=== PATIENT | male | born 1980 | race Caucasian/White ===

== ENCOUNTER 2017-03-08 21:56 | Emergency (ER) | payer OTHER ==
--- NOTE | 2017-03-08 23:30 | DIAGNOSTIC IMAGING REPORT ---
PROCEDURE: XR CHEST 2 VIEW INDICATION: FEVER TECHNIQUE: PA and lateral views. COMPARISON: None. FINDINGS: Allowing for overlying wires and electrodes, lungs are clear. Heart and mediastinum are normal. Thorax is normal. IMPRESSION: 1. Negative chest.
--- NOTE | 2017-03-09 01:14 | ED CLINICAL REPORT ---
Clinical Report - Physicians/Mid Levels Formerly [facility] [address] [place] [address] 03/08/2017 21:58 Patient: ANTWAN PATE Time Seen: 22:35. Arrived- By private vehicle. Historian- patient. HISTORY OF PRESENT ILLNESS Chief Complaint: FEVER. This started about 2 days ago and is still present. Fever has been intermittent. The patient has had fatigue and mild dyspnea. He complains of moderate, pressure-like, exertional left-sided chest pain (since 2 days ago), currently mild. Denies pleuritic chest pain. He has had a mild cough productive of scant amounts of green sputum. REVIEW OF SYSTEMS The patient has had fatigue, mild palpitations and nausea. He has had a subjective fever (for 2 days). No calf pain, pedal edema, abdominal pain, black stools or bloody stools. No constipation, vomiting or urinary problems. He has had mild loose stools (yesterday). This has occurred several times. No bloody diarrhea. All systems otherwise negative, except as recorded above. PAST HISTORY Problems: Hypertension. Additional Surgeries: no known surgeries. Medications: None. Allergies: No Known Drug Allergy. SOCIAL HISTORY Never smoker. FAMILY HISTORY Denies family medical history. ADDITIONAL NOTES The nursing notes have been reviewed. PHYSICAL EXAM Vital Signs: 03/08/2017 22:17 BP: 152/90. HR: 102. RR: 18. O2 saturation: 97%. Temp: 101.1 F. Pain level now: 6/10. Have been reviewed. Appearance: Alert. Eyes: Pupils equal, round and reactive to light. ENT: Pharynx normal. Neck: Normal inspection. Neck supple. CVS: Normal heart rate and rhythm. Heart sounds normal. Respiratory: (rattle over large airways which clears with cough). Abdomen: Soft and nontender. Bowel sounds normal. No organomegaly. No mass. Back: Normal inspection. No tenderness. Skin: Skin warm and dry. Normal skin color. No rash. Normal skin turgor. Extremities: Extremities exhibit normal ROM. Extremities nontender. LABS, X-RAYS, AND EKG EKG: Normal EKG. Rate: 75. Prior EKG unavailable. The study has been independently viewed by me. Chest X-ray: (IMPRESSION: 1. Negative chest). The X-rays were interpreted by the radiologist and contemporaneously by me. Laboratory Tests: ESR: (MONIQUE: 03/08/2017 22:20) ( [facility] [place]/09[place] 00:25) Final results Test Result Flag Units (Reference) SED RATE WESTERGREN 11 mm/hr (0-15) CBC w Diff: (MONIQUE: 03/08/2017 22:20) ( [facility] 03/08/2017 22:34) Final results Test Result Flag Units (Reference) WHITE BLOOD COUNT 8.8 K/uL (4.5-11.5) RED BLOOD COUNT 5.15 M/uL (4.50-5.90) HEMOGLOBIN 14.9 gm/dL (13.5-17.5) HEMATOCRIT 44.0 % (41.0-53.0) MEAN CELL VOLUME 86 fL (80-100) MEAN CORPUSCULAR HGB 29 pg (26-34) MEAN CORPUSCULAR HGB CONC 34 g/dL (31-37) RED CELL DISTRIBUTION WIDTH 13.1 % (11.6-14.8) PLATELET COUNT 194 K/uL (150-400) NEUTROPHIL % 73.5 % (50-75) LYMPH % 10.9 L % (25-40) MONO % 15.3 H % (3-14) EOSINOPHIL % 0 % (0-4) BASOPHIL % 0.3 % (0-2) [id number]: (MONIQUE: 03/08/2017 22:20) ( MsgRcvd 03/09/2017 00:12) Final results Test Result Flag Units (Reference) C-REACTIVE PROTEIN 1.9 H mg/dL (0.0-0.9) [id number]: (MONIQUE: 03/08/2017 22:20) ( [facility] 03/08/2017 23:18) Final results Test Result Flag Units (Reference) PROCALCITONIN <0.5 ng/mL (0-0.5) PCT Concentration: Interpretation : Risk/option for action PCT <=0.5 ng/mL : Systemic : Low risk forinfection(sepsis): progression to severeis not likely. : systemic infection.Local bacterial : CAUTION-PCT levelsinfection is : below 0.5 ng/mL do notpossible. : exclude an infection,because localizedinfections (withoutsystemic signs) may beassociated with suchlow levels. If PCT ismeasured very earlyafter a bacterialchallenge (usually <6hours), these valuesmay still be low. Inthis case PCT shouldbe re-assessed 6-24hours later. PCT >0.5 and : Systemic infection: Moderate risk for<= 2 ng/mL : (sepsis) is : progression to severepossible, but : systemic infection.other conditions : The patient should beare known to : closely monitoredelevate PCT. : both clinically andby re-assessing PCTwithin 6-24 hours. PCT > 2 ng/mL : Systemic infection: High risk for(sepsis) is likely: progression to severeunless other : systemic infection.causes are known. : PCT >= 10 ng/mL : Important systemic: High likelihood ofinflammatory : severe sepsis orresponse, almost : septic shock.exclusively due to:severe bacterial :sepsis or septic :shock. : CMP: (MONIQUE: 03/08/2017 22:20) ( MsgRcvd 03/08/2017 22:45) Final results Test Result Flag Units (Reference) GLUCOSE 105 mg/dL (70-110) BUN 15 mg/dL (7-18) CREATININE 1.1 mg/dL (0.6-1.3) Estimated GFR >60 mL/min Estimated GFR- >60 mL/min Note: Persistent reduction over 3 months in eGFR<60 mL/min/1.73 m2 defines CKD. Patients with eGFR values>=60 mL/min/1.73 m2 may also have CKD if evidence ofpersistent proteinuria. Additional information may be foundat www.kidney.org. SODIUM 138 mmol/L (136-145) POTASSIUM 3.9 mmol/L (3.5-5.1) CHLORIDE 102 mmol/L (98-107) CARBON DIOXIDE 26 mmol/L (21-32) CALCIUM 9.4 mg/dL (8.5-10.1) TOTAL PROTEIN 7.6 g/dL (6.4-8.2) ALBUMIN 4.2 g/dL (3.3-5.0) BILIRUBIN, TOTAL 0.9 mg/dL (0.0-1.0) ALKALINE PHOSPHATASE 81 U/L (46-116) AST (SGOT) 32 U/L (15-37) ALT (SGPT) 43 U/L (12-78) . PROGRESS AND PROCEDURES Course of Care: Patient is stable. Patient/family counseled. Old medical records ordered. Old records unavailable. Disposition: Discharged. Condition: stable. CLINICAL IMPRESSION Fever Acute bronchitis. Pleurisy. INSTRUCTIONS Drink plenty of fluids. Warnings: Further evaluation is necessary. GENERAL WARNINGS: Return or contact your physician immediately if your condition worsens or changes unexpectedly, if not improving as expected, or if other problems arise. Prescription Medications: Zithromax 250 mg tablets: take 2 orally today, followed by 1 daily for the next 4 days. No refills. Substitution is permissible. OTC Medications: Acetaminophen (available over the counter): take according to label instructions. Motrin (available over the counter): take according to label instructions. Follow-up: Follow up with your doctor Saturday in three days. Call for an appointment. Understanding of the discharge instructions verbalized by patient and family. (Electronically signed by Domingo Varghese MD 03/11/2017 11:03)
--- NOTE | 2017-03-09 01:14 | ED ORDER SUMMARY ---
..... Patient: ANTWAN PATE OrderSheet [facility] VisitID: [id number] [address] [place] [address] 36y, M Registration Date/Time: 03/08/2017 ORDER SHEET Weight: 99.7 kg Allergies: No Known Drug Allergy GENERAL ORDERS: CBC w Diff Urgent (22:22 03/08/2017 TBowen R.N. per protocol) (22:23 TBowen R.N.) CMP Urgent (22:22 03/08/2017 TBowen R.N. per protocol) (22:23 TBowen R.N.) EKG - ER Stat (22:22 03/08/2017 TBowen R.N. per protocol) (Ack 22:23 SRedmond) (22:28 SRedmond) Chest 2V Urgent (22:47 03/08/2017 Yanira CORONADO) (Ack 22:56 SRedmond) (23:05 SRedmond) PCT (Procalcitonin) Urgent (22:48 03/08/2017 Yanira CORONADO) (Ack 22:56 SRedmond) (23:21 SRedmond) ESR Urgent (00:01 03/09/2017 Yanira CORONADO) (Ack 0:03 SRedmond) (0:17 TBowen R.N.) CRP Urgent (00:01 03/09/2017 Yanira CORONADO) (Ack 0:03 SRedmond) (0:17 TBowen R.N.) MEDICATION ORDERS: IV FLUIDS: ORDER SHEET NOTES: [Electronically signed by Mar Will R.N. (03/09/2017)] [Electronically signed by Domingo Varghese MD (11:03 03/11/2017)] [Electronically locked/signed by Mar Will R.N. (03/09/2017)]
--- NOTE | 2017-03-09 01:14 | ED ORDER SUMMARY ---
..... Patient: ANTWAN PATE OrderSheet [facility] VisitID: [id number] [address] [place] [address] 36y, M Registration Date/Time: 03/08/2017 ORDER SHEET Weight: 99.7 kg Allergies: No Known Drug Allergy GENERAL ORDERS: CBC w Diff Urgent (22:22 03/08/2017 TBowen R.N. per protocol) (22:23 TBowen R.N.) CMP Urgent (22:22 03/08/2017 TBowen R.N. per protocol) (22:23 TBowen R.N.) EKG - ER Stat (22:22 03/08/2017 TBowen R.N. per protocol) (Ack 22:23 SRedmond) (22:28 SRedmond) Chest 2V Urgent (22:47 03/08/2017 Yanira CORONADO) (Ack 22:56 SRedmond) (23:05 SRedmond) PCT (Procalcitonin) Urgent (22:48 03/08/2017 Yanira CORONADO) (Ack 22:56 SRedmond) (23:21 SRedmond) ESR Urgent (00:01 03/09/2017 Yanira CORONADO) (Ack 0:03 SRedmond) (0:17 TBowen R.N.) CRP Urgent (00:01 03/09/2017 Yanira CORONADO) (Ack 0:03 SRedmond) (0:17 TBowen R.N.) MEDICATION ORDERS: IV FLUIDS: ORDER SHEET NOTES: [Electronically signed by Mar Will R.N. (03/09/2017)] [Electronically signed by Domingo Varghese MD (11:03 03/11/2017)] [Electronically locked/signed by Mar Will R.N. (03/09/2017)]
--- NOTE | 2017-03-09 01:14 | ED CLINICAL REPORT ---
Clinical Report - Physicians/Mid Levels [facility] [address] [place] [address] 03/08/2017 21:58 Patient: ANTWAN PATE Time Seen: 22:35. Arrived- By private vehicle. Historian- patient. HISTORY OF PRESENT ILLNESS Chief Complaint: FEVER. This started about 2 days ago and is still present. Fever has been intermittent. The patient has had fatigue and mild dyspnea. He complains of moderate, pressure-like, exertional left-sided chest pain (since 2 days ago), currently mild. Denies pleuritic chest pain. He has had a mild cough productive of scant amounts of green sputum. REVIEW OF SYSTEMS The patient has had fatigue, mild palpitations and nausea. He has had a subjective fever (for 2 days). No calf pain, pedal edema, abdominal pain, black stools or bloody stools. No constipation, vomiting or urinary problems. He has had mild loose stools (yesterday). This has occurred several times. No bloody diarrhea. All systems otherwise negative, except as recorded above. PAST HISTORY Problems: Hypertension. Additional Surgeries: no known surgeries. Medications: None. Allergies: No Known Drug Allergy. SOCIAL HISTORY Never smoker. FAMILY HISTORY Denies family medical history. ADDITIONAL NOTES The nursing notes have been reviewed. PHYSICAL EXAM Vital Signs: 03/08/2017 22:17 BP: 152/90. HR: 102. RR: 18. O2 saturation: 97%. Temp: 101.1 F. Pain level now: 6/10. Have been reviewed. Appearance: Alert. Eyes: Pupils equal, round and reactive to light. ENT: Pharynx normal. Neck: Normal inspection. Neck supple. CVS: Normal heart rate and rhythm. Heart sounds normal. Respiratory: (rattle over large airways which clears with cough). Abdomen: Soft and nontender. Bowel sounds normal. No organomegaly. No mass. Back: Normal inspection. No tenderness. Skin: Skin warm and dry. Normal skin color. No rash. Normal skin turgor. Extremities: Extremities exhibit normal ROM. Extremities nontender. LABS, X-RAYS, AND EKG EKG: Normal EKG. Rate: 75. Prior EKG unavailable. The study has been independently viewed by me. Chest X-ray: (IMPRESSION: 1. Negative chest). The X-rays were interpreted by the radiologist and contemporaneously by me. Laboratory Tests: ESR: (MONIQUE: 03/08/2017 22:20) ( [facility] [place]:25) Final results Test Result Flag Units (Reference) SED RATE WESTERGREN 11 mm/hr (0-15) CBC w Diff: (MONIQUE: 03/08/2017 22:20) ( [facility] [place]/08[place] 22:34) Final results Test Result Flag Units (Reference) WHITE BLOOD COUNT 8.8 K/uL (4.5-11.5) RED BLOOD COUNT 5.15 M/uL (4.50-5.90) HEMOGLOBIN 14.9 gm/dL (13.5-17.5) HEMATOCRIT 44.0 % (41.0-53.0) MEAN CELL VOLUME 86 fL (80-100) MEAN CORPUSCULAR HGB 29 pg (26-34) MEAN CORPUSCULAR HGB CONC 34 g/dL (31-37) RED CELL DISTRIBUTION WIDTH 13.1 % (11.6-14.8) PLATELET COUNT 194 K/uL (150-400) NEUTROPHIL % 73.5 % (50-75) LYMPH % 10.9 L % (25-40) MONO % 15.3 H % (3-14) EOSINOPHIL % 0 % (0-4) BASOPHIL % 0.3 % (0-2) [id number]: (MONIQUE: 03/08/2017 22:20) ( MsgRcvd 03/09/2017 00:12) Final results Test Result Flag Units (Reference) C-REACTIVE PROTEIN 1.9 H mg/dL (0.0-0.9) [id number]: (MONIQUE: 03/08/2017 22:20) ( [facility] [place]/08[place] 23:18) Final results Test Result Flag Units (Reference) PROCALCITONIN <0.5 ng/mL (0-0.5) PCT Concentration: Interpretation : Risk/option for action PCT <=0.5 ng/mL : Systemic : Low risk forinfection(sepsis): progression to severeis not likely. : systemic infection.Local bacterial : CAUTION-PCT levelsinfection is : below 0.5 ng/mL do notpossible. : exclude an infection,because localizedinfections (withoutsystemic signs) may beassociated with suchlow levels. If PCT ismeasured very earlyafter a bacterialchallenge (usually <6hours), these valuesmay still be low. Inthis case PCT shouldbe re-assessed 6-24hours later. PCT >0.5 and : Systemic infection: Moderate risk for<= 2 ng/mL : (sepsis) is : progression to severepossible, but : systemic infection.other conditions : The patient should beare known to : closely monitoredelevate PCT. : both clinically andby re-assessing PCTwithin 6-24 hours. PCT > 2 ng/mL : Systemic infection: High risk for(sepsis) is likely: progression to severeunless other : systemic infection.causes are known. : PCT >= 10 ng/mL : Important systemic: High likelihood ofinflammatory : severe sepsis orresponse, almost : septic shock.exclusively due to:severe bacterial :sepsis or septic :shock. : CMP: (MONIQUE: 03/08/2017 22:20) ( MsgRcvd 03/08/2017 22:45) Final results Test Result Flag Units (Reference) GLUCOSE 105 mg/dL (70-110) BUN 15 mg/dL (7-18) CREATININE 1.1 mg/dL (0.6-1.3) Estimated GFR >60 mL/min Estimated GFR- >60 mL/min Note: Persistent reduction over 3 months in eGFR<60 mL/min/1.73 m2 defines CKD. Patients with eGFR values>=60 mL/min/1.73 m2 may also have CKD if evidence ofpersistent proteinuria. Additional information may be foundat www.kidney.org. SODIUM 138 mmol/L (136-145) POTASSIUM 3.9 mmol/L (3.5-5.1) CHLORIDE 102 mmol/L (98-107) CARBON DIOXIDE 26 mmol/L (21-32) CALCIUM 9.4 mg/dL (8.5-10.1) TOTAL PROTEIN 7.6 g/dL (6.4-8.2) ALBUMIN 4.2 g/dL (3.3-5.0) BILIRUBIN, TOTAL 0.9 mg/dL (0.0-1.0) ALKALINE PHOSPHATASE 81 U/L (46-116) AST (SGOT) 32 U/L (15-37) ALT (SGPT) 43 U/L (12-78) . PROGRESS AND PROCEDURES Course of Care: Patient is stable. Patient/family counseled. Old medical records ordered. Old records unavailable. Disposition: Discharged. Condition: stable. CLINICAL IMPRESSION Fever Acute bronchitis. Pleurisy. INSTRUCTIONS Drink plenty of fluids. Warnings: Further evaluation is necessary. GENERAL WARNINGS: Return or contact your physician immediately if your condition worsens or changes unexpectedly, if not improving as expected, or if other problems arise. Prescription Medications: Zithromax 250 mg tablets: take 2 orally today, followed by 1 daily for the next 4 days. No refills. Substitution is permissible. OTC Medications: Acetaminophen (available over the counter): take according to label instructions. Motrin (available over the counter): take according to label instructions. Follow-up: Follow up with your doctor Saturday in three days. Call for an appointment. Understanding of the discharge instructions verbalized by patient and family. (Electronically signed by Domingo Varghese MD 03/11/2017 11:03)
--- NOTE | 2017-03-09 01:14 | ED NURSING NOTES ---
Clinical Report - Nurses [facility] [address] [place] [address] 03/08/2017 21:58 Patient: ANTWAN PATE TRIAGE Triage time 22:17. Chief Complaint: FEVER and "NOT FEELING WELL". --22:20 Apolinar R.N. 22:17 03/08/17. BP: 152/90. HR: 102. RR: 18. O2 saturation: 97%. Temp: 101.1 F. Pain level now: 05/11. --22:20 Apolinar R.N. Weight: 99.7 kg. Height/Length: 74 inches. BMI: 28.2. --22:20 Apolinar R.N. Medications None. --22:18 Apolinar R.N. Allergies No Known Drug Allergy. --22:18 Apolinar R.N. History Arrived by private vehicle. Historian: patient. Accompanied by family. Onset. (2 days). ( pt also complains of cough, chest pain and tingling in his hands and fingers). He has had a sore throat and a cough and headache. PAST MEDICAL HX: Immunizations: up-to-date. SOCIAL HX: Never smoker. No infectious disease exposure. --22:20 Apolinar R.N. SELF HARM ASSESSMENT: A self harm assessment was performed. The patient answered "no" to the question "Have you recently felt down, depressed, or hopeless?", "Have you noticed less interest or pleasure in doing things?", "Do you have thoughts of harming or killing yourself?", "Are you here because you tried to hurt yourself?", "Have you ever tried to hurt yourself before today?", "Have you recently had thoughts about harming or killing others?" and "Do you have any dangerous items in your possession?". FALL RISK ASSESSMENT: Fall risk assessment completed. No fall risk identified. NUTRITIONAL RISK ASSESSMENT: The nutritional risk assessment revealed no deficiencies. FUNCTIONAL ASSESSMENT: Functional assessment: no impairments noted. LEARNING NEEDS ASSESSMENT: The learning needs assessment revealed no barriers. SKIN INTEGRITY ASSESSMENT: Skin integrity risk assessment completed. No skin integrity risk identified. --22:20 Oswaldo Jiang PROBLEMS: Hypertension. --22:19 Henrique Jiang. ADDITIONAL SURGERIES: no known surgeries. Interventions ID band on patient. To treatment room. --22:20 Oswaldo Jiang PHYSICAL ASSESSMENT Ambulatory to room. GENERAL / NEURO / PSYCH: Alert. Oriented X 4. Appears in no acute distress. HEENT: Pupils equal, round and reactive to light. Mucous membranes are pink. RESPIRATORY: Respirations not labored. Nonproductive cough. Chest wall tenderness. CVS: Normal sinus rhythm noted. Capillary refill less than 2 seconds. Pulses within normal limits. GI / : ( nausea). Abdomen soft and nontender and normal bowel sounds. SKIN: Skin intact. Skin is warm and dry. Normal skin turgor. --22:21 Oswaldo Jiang NURSING PROGRESS NOTES acid wash operator, pulse oximeter and NIBP monitor placed on patient. Patient gowned. Patient identifiers checked. Call light placed in reach. Side rails up. Bed placed in lowest position. Brakes of bed on. --: Oswaldo Jiang 22:03/08/2017 Site #1 started via IV in the right antecubital space with an 20g angiocath, with aseptic technique and good blood return; one attempt. Blood drawn: rainbow set. Labeled in the presence of the patient and sent to the lab. Saline lock flushed with saline. --:22 Oswaldo Jiang EKG time: (2228 PM). EKG was ordered, performed by a tech and shown to the ED physician. --22:31 Aranza Stewart. DISPOSITION / DISCHARGE 01:03/09/2017 Site #1 removed upon discharge. Catheter intact. Bandaid applied. --: Oswaldo Jiang Departure time: :22. Condition at departure: improved. No learning barriers present. Discharge instructions provided and reviewed with the patient. Reviewed medication(s) side effects, precautions, dosing and course information. Prescription(s) given to the patient. Patient verbalized understanding. Written instructions provided in Tristanian. No warning instructions, treatment instructions, referrals given to the patient, diet instructions or activity restrictions. No follow up contact number given or stop smoking instructions. No work note given. The patient was discharged by the physician. He was discharged home and accompanied by spouse. He left the Emergency Department ambulatory and via private vehicle. Spouse driving. FALL RISK ASSESSMENT: Fall risk assessment completed. No fall risk identified. --01:22 Oswaldo Jiang 01:21 03/09/17. BP: 134/86. HR: 71. RR: 16. O2 saturation: 98%. Temp: 98.5 F. Pain level now: 01/11. --01:22 Oswaldo Jiang Locked/Released at 03/09/2017 1:22 by Oswaldo Jiang
--- NOTE | 2017-03-09 01:14 | ED NURSING NOTES ---
Clinical Report - Nurses [facility] [address] [place] [address] 03/08/2017 21:58 Patient: ANTWAN PATE TRIAGE Triage time 22:17. Chief Complaint: FEVER and "NOT FEELING WELL". --22:20 Apolinar R.N. 22:17 03/08/17. BP: 152/90. HR: 102. RR: 18. O2 saturation: 97%. Temp: 101.1 F. Pain level now: 05/11. --22:20 Apolinar R.N. Weight: 99.7 kg. Height/Length: 74 inches. BMI: 28.2. --22:20 Apolinar R.N. Medications None. --22:18 Apolinar R.N. Allergies No Known Drug Allergy. --22:18 Apolinar R.N. History Arrived by private vehicle. Historian: patient. Accompanied by family. Onset. (2 days). ( pt also complains of cough, chest pain and tingling in his hands and fingers). He has had a sore throat and a cough and headache. PAST MEDICAL HX: Immunizations: up-to-date. SOCIAL HX: Never smoker. No infectious disease exposure. --22:20 Apolinar R.N. SELF HARM ASSESSMENT: A self harm assessment was performed. The patient answered "no" to the question "Have you recently felt down, depressed, or hopeless?", "Have you noticed less interest or pleasure in doing things?", "Do you have thoughts of harming or killing yourself?", "Are you here because you tried to hurt yourself?", "Have you ever tried to hurt yourself before today?", "Have you recently had thoughts about harming or killing others?" and "Do you have any dangerous items in your possession?". FALL RISK ASSESSMENT: Fall risk assessment completed. No fall risk identified. NUTRITIONAL RISK ASSESSMENT: The nutritional risk assessment revealed no deficiencies. FUNCTIONAL ASSESSMENT: Functional assessment: no impairments noted. LEARNING NEEDS ASSESSMENT: The learning needs assessment revealed no barriers. SKIN INTEGRITY ASSESSMENT: Skin integrity risk assessment completed. No skin integrity risk identified. --22:20 Oswaldo Jiang PROBLEMS: Hypertension. --22:19 Henrique Jiang. ADDITIONAL SURGERIES: no known surgeries. Interventions ID band on patient. To treatment room. --22:20 Oswaldo Jiang PHYSICAL ASSESSMENT Ambulatory to room. GENERAL / NEURO / PSYCH: Alert. Oriented X 4. Appears in no acute distress. HEENT: Pupils equal, round and reactive to light. Mucous membranes are pink. RESPIRATORY: Respirations not labored. Nonproductive cough. Chest wall tenderness. CVS: Normal sinus rhythm noted. Capillary refill less than 2 seconds. Pulses within normal limits. GI / : ( nausea). Abdomen soft and nontender and normal bowel sounds. SKIN: Skin intact. Skin is warm and dry. Normal skin turgor. --22:21 Oswaldo Jiang NURSING PROGRESS NOTES cardiac monitor technician, pulse oximeter and NIBP monitor placed on patient. Patient gowned. Patient identifiers checked. Call light placed in reach. Side rails up. Bed placed in lowest position. Brakes of bed on. --: Oswaldo Jiang 22:03/08/2017 Site #1 started via IV in the right antecubital space with an 20g angiocath, with aseptic technique and good blood return; one attempt. Blood drawn: rainbow set. Labeled in the presence of the patient and sent to the lab. Saline lock flushed with saline. --:22 Oswaldo Jiang EKG time: (2228 PM). EKG was ordered, performed by a tech and shown to the ED physician. --22:31 Aranza Stewart. DISPOSITION / DISCHARGE 01:03/09/2017 Site #1 removed upon discharge. Catheter intact. Bandaid applied. --: Oswaldo Jiang Departure time: :22. Condition at departure: improved. No learning barriers present. Discharge instructions provided and reviewed with the patient. Reviewed medication(s) side effects, precautions, dosing and course information. Prescription(s) given to the patient. Patient verbalized understanding. Written instructions provided in [place]. No warning instructions, treatment instructions, referrals given to the patient, diet instructions or activity restrictions. No follow up contact number given or stop smoking instructions. No work note given. The patient was discharged by the physician. He was discharged home and accompanied by spouse. He left the Emergency Department ambulatory and via private vehicle. Spouse driving. FALL RISK ASSESSMENT: Fall risk assessment completed. No fall risk identified. --01:22 Oswaldo Jiang 01:21 03/09/17. BP: 134/86. HR: 71. RR: 16. O2 saturation: 98%. Temp: 98.5 F. Pain level now: 01/11. --01:22 Oswaldo Jiang Locked/Released at 03/09/2017 1:22 by Oswaldo Jiang
--- NOTE | 2017-03-11 11:04 | ED MAR SUMMARY ---
..... Medication Administration Record [facility] [address] [place], [place] [id number] Patient: ANTWAN PATE Visit ID: [id number] 36y, M Weight: 99.7 kg Height/Length: 74 in BMI: 28.2 ALLERGIES: No Known Drug Allergy
--- NOTE | 2017-03-11 11:04 | ED MAR SUMMARY ---
..... Medication Administration Record [facility] [address] [place], [place] [id number] Patient: ANTWAN PATE Visit ID: [id number] 36y, M Weight: 99.7 kg Height/Length: 74 in BMI: 28.2 ALLERGIES: No Known Drug Allergy
--- NOTE | 2017-03-11 11:04 | ED DISCHARGE INSTRUCTIONS ---
Patient: ANTWAN PATE General Instructions [facility] VisitID: [id number] [place] [address] 36y, M Registration Date/Time: 03/08/2017 Fever Acute bronchitis. Pleurisy. INSTRUCTIONS Drink plenty of fluids. Warnings: Further evaluation is necessary. GENERAL WARNINGS: Return or contact your physician immediately if your condition worsens or changes unexpectedly, if not improving as expected, or if other problems arise. Prescription Medications: Zithromax 250 mg tablets: take 2 orally today, followed by 1 daily for the next 4 days. No refills. Substitution is permissible. OTC Medications: Acetaminophen (available over the counter): take according to label instructions. Motrin (available over the counter): take according to label instructions. Follow-up: Follow up with your doctor Saturday in three days. Call for an appointment. Understanding of the discharge instructions verbalized by patient and family. ADDITIONAL INFORMATION Febrile Illness, Uncertain Cause (Adult) You have a fever, but the cause is not certain. A fever is a natural reaction of the body to an illness such as infections due to a virus or bacteria. In most cases, the temperature itself is not harmful. It actually helps the body fight infections. A fever does not need to be treated unless you feel very uncomfortable. Sometimes a fever can be an early sign of a more serious infection. Therefore, you should watch for the signs listed below. Home Care: If signs and symptoms are severe, rest at home for the first 2-3 days. When you resume activity, don't let yourself get too tired. Stay away from cigarette smoke (yours and other peoples). You may use acetaminophen (Tylenol) or ibuprofen (Motrin, Advil) to control fever or pain, unless another medicine was prescribed. NOTE: If you have chronic liver or kidney disease or ever had a stomach ulcer or GI bleeding, talk with your doctor before using these medicines. (Aspirin should never be used in anyone under 18 years of age who is ill with a fever. It may cause severe liver damage.) Your appetite may be poor, so a light diet is fine. Avoid dehydration by drinking 6-8 glasses of fluid per day (water, sport drinks such as Gatorade, sodas without caffeine, juices, tea, soup). Extra fluid will help loosen secretions in the nose and lungs. Boyc-kgr-[id number] products will not shorten the duration of the illness but may be helpful for the following symptoms: cough (Robitussin DM); sore throat (Chloraseptic lozenges or spray); nasal and sinus congestion (Actifed or Sudafed). NOTE: Do not use decongestants if you have high blood pressure. Follow Up with your doctor or as advised if you do not start to improve over the next week. Get Prompt Medical Attention if any of the following occur: Cough with lots of colored sputum (mucus) or blood in your sputum Chest pain, shortness of breath, wheezing or difficulty breathing Severe headache, face, neck, throat or ear pain Feeling drowsy or confused Abdominal pain, repeated vomiting or diarrhea Joint pain or a new rash Burning when urinating Fever of 100.4F (38C) oral or higher, not better with fever medication Feeling weak or dizzy Convulsion Bronchitis (Adult: Abx Tx) BRONCHITIS is an infection of the air passages (bronchial tubes). It often occurs during the common cold. Symptoms include cough with mucus (phlegm) and low-grade fever. Bronchitis usually lasts 7-14 days. Mild cases can be treated with simple home remedies. More severe infection is treated with an antibiotic. Home Care: If symptoms are severe, rest at home for the first 2-3 days. When you resume activity, don't let yourself get too tired. Do not smoke. Avoid being exposed to the smoke of others. You may use acetaminophen (Tylenol) or ibuprofen (Motrin, Advil) to control fever or pain, unless another medicine was prescribed for this. [NOTE: If you have chronic liver or kidney disease or ever had a stomach ulcer or GI bleeding, talk with your doctor before using these medicines.] Your appetite may be poor, so a light diet is fine. Avoid dehydration by drinking 6-8 glasses of fluids per day (water, soft, drinks, juices, tea, soup, etc.). Extra fluids will help loosen secretions in the lungs. Cmgp-kpf-rxzyidl cough medicines that containdextromethorphan(such as Robitussin DM) and decongestants (Actifed or Sudafed) may help relieve cough and congestion. [NOTE: Do not use decongestants if you have high blood pressure.] Finish all antibiotic medicine, even if you are feeling better after only a few days. Follow Up with your doctor or as directed if you dont start to feel better after three days. [NOTE: If you are age 65 or older, or if you have chronic asthma or COPD, we recommend a PNEUMOCOCCAL VACCINATION every five years and a yearly INFLUENZAVACCINATION (FLU-SHOT) every . Ask your doctor about this. If you had an X-ray, a radiologist will review it. You will be notified of any new findings that may affect your care.] Get Prompt Medical Attention if any of the following occur: Fever over 100.4F (38.0C) for more than three days Trouble breathing, wheezing or pain with breathing Coughing up blood or increased amounts of colored sputum Weakness, drowsiness, headache, facial pain, ear pain or a stiff neck Pleurisy If you have pleurisy, the lining around your lungs is inflamed. It is most often due to a viral infection or pneumonia. It usually lasts for 1014 days. It may cause sharp pain with breathing, coughing, sneezing and movement. Antibiotics are usually not prescribed for this condition unless pneumonia is also present. Home care The following will help you care for your condition at home: If symptoms are severe, rest at home for the first 23 days. Avoid being exposed to cigarette smoke (yours or that of others). You may use acetaminophen or ibuprofen to control pain, unless another pain medicine was prescribed. If you have chronic liver or kidney disease or ever had a stomach ulcer or GI bleeding, talk with your doctor before using these medicines. Follow-up care Follow up with your doctor or as advised if you do not improve over the next week. When to seek medical care Get prompt medical attention if any of the following occur: Increasing shortness of breath Increase in chest pain, or pain spreads to the neck, arm or back Fever over 100.4F (38.0C) for more than three days Coughing up lots of colored sputum (mucus) or blood Redness, pain or swelling of the leg Azithromycin Oral tablet What is this medicine? AZITHROMYCIN (az ith roselyn MYE sin) is a macrolide antibiotic. It is used to treat or prevent certain kinds of bacterial infections. It will not work for colds, flu, or other viral infections. How should I use this medicine? Take this medicine by mouth with a full glass of water. Follow the directions on the prescription label. The tablets can be taken with food or on an empty stomach. If the medicine upsets your stomach, take it with food. Take your medicine at regular intervals. Do not take your medicine more often than directed. Take all of your medicine as directed even if you think your are better. Do not skip doses or stop your medicine early. Talk to your delicatessen clerk regarding the use of this medicine in children. Special care may be needed. What side effects may I notice from receiving this medicine? Side effects that you should report to your doctor or health healthcare administration internship as soon as possible: allergic reactions like skin rash, itching or hives, swelling of the face, lips, or tongue confusion, nightmares or hallucinations dark urine difficulty breathing hearing loss irregular heartbeat or chest pain pain or difficulty passing urine redness, blistering, peeling or loosening of the skin, including inside the mouth white patches or sores in the mouth yellowing of the eyes or skin Side effects that usually do not require medical attention (report to your doctor or health healthcare administration internship if they continue or are bothersome): diarrhea dizziness, drowsiness headache stomach upset or vomiting tooth discoloration vaginal irritation What may interact with this medicine? Do not take this medicine with any of the following medications: lincomycin This medicine may also interact with the following medications: amiodarone antacids cyclosporine digoxin magnesium nelfinavir phenytoin warfarin What if I miss a dose? If you miss a dose, take it as soon as you can. If it is almost time for your next dose, take only that dose. Do not take double or extra doses. Where should I keep my medicine? Keep out of the reach of children. Store at room temperature between 15 and 30 degrees C (59 and 86 degrees F). Throw away any unused medicine after the expiration date. What should I tell my health care provider before I take this medicine? They need to know if you have any of these conditions: kidney disease liver disease irregular heartbeat or heart disease an unusual or allergic reaction to azithromycin, erythromycin, other macrolide antibiotics, foods, dyes, or preservatives or trying to get breast-feeding What should I watch for while using this medicine? Tell your doctor or health healthcare administration internship if your symptoms do not improve. Do not treat diarrhea with over the counter products. Contact your doctor if you have diarrhea that lasts more than 2 days or if it is severe and watery. This medicine can make you more sensitive to the sun. Keep out of the sun. If you cannot avoid being in the sun, wear protective clothing and use sunscreen. Do not use sun lamps or tanning beds/booths. Acetaminophen Oral tablet What is this medicine? ACETAMINOPHEN (a set a SHAD hermelinda fen) is a pain reliever. It is used to treat mild pain and fever. How should I use this medicine? Take this medicine by mouth with a glass of water. Follow the directions on the package or prescription label. Take your medicine at regular intervals. Do not take your medicine more often than directed. Talk to your delicatessen clerk regarding the use of this medicine in children. While this drug may be prescribed for children as young as 6 years of age for selected conditions, precautions do apply. What side effects may I notice from receiving this medicine? Side effects that you should report to your doctor or health healthcare administration internship as soon as possible: allergic reactions like skin rash, itching or hives, swelling of the face, lips, or tongue breathing problems fever or sore throat redness, blistering, peeling or loosening of the skin, including inside the mouth trouble passing urine or change in the amount of urine unusual bleeding or bruising unusually weak or tired yellowing of the eyes or skin Side effects that usually do not require medical attention (report to your doctor or health healthcare administration internship if they continue or are bothersome): headache nausea, stomach upset What may interact with this medicine? alcohol imatinib isoniazid other medicines with acetaminophen What if I miss a dose? If you miss a dose, take it as soon as you can. If it is almost time for your next dose, take only that dose. Do not take double or extra doses. Where should I keep my medicine? Keep out of reach of children. Store at room temperature between 20 and 25 degrees C (68 and 77 degrees F). Protect from moisture and heat. Throw away any unused medicine after the expiration date. What should I tell my health care provider before I take this medicine? They need to know if you have any of these conditions: if you frequently drink alcohol containing drinks liver disease an unusual or allergic reaction to acetaminophen, other medicines, foods, dyes or preservatives or trying to get breast-feeding What should I watch for while using this medicine? Tell your doctor or health healthcare administration internship if the pain lasts more than 10 days (5 days for children), if it gets worse, or if there is a new or different kind of pain. Also, check with your doctor if a fever lasts for more than 3 days. Do not take other medicines that contain acetaminophen with this medicine. Always read labels carefully. If you have questions, ask your doctor or pharmacist. If you take too much acetaminophen get medical help right away. Too much acetaminophen can be very dangerous and cause liver damage. Even if you do not have symptoms, it is important to get help right away. Ibuprofen Oral tablet What is this medicine? IBUPROFEN (eye BYOO proe fen) is a non-steroidal anti-inflammatory drug (NSAID). It is used for dental pain, fever, headaches or migraines, osteoarthritis, rheumatoid arthritis, or painful monthly periods. It can also relieve minor aches and pains caused by a cold, flu, or sore throat. How should I use this medicine? Take this medicine by mouth with a glass of water. Follow the directions on the prescription label. Take this medicine with food if your stomach gets upset. Try to not lie down for at least 10 minutes after you take the medicine. Take your medicine at regular intervals. Do not take your medicine more often than directed. A special MedGuide will be given to you by the pharmacist with each prescription and refill. Be sure to read this information carefully each time. Talk to your delicatessen clerk regarding the use of this medicine in children. Special care may be needed. What side effects may I notice from receiving this medicine? Side effects that you should report to your doctor or health healthcare administration internship as soon as possible: allergic reactions like skin rash, itching or hives, swelling of the face, lips, or tongue black or bloody stools, blood in the urine or in vomit breathing problems changes in vision chest pain general ill feeling or flu-like symptoms nausea or vomiting redness, blistering, peeling or loosening of the skin, including inside the mouth slurred speech or weakness on one side of the body stomach pain unexplained weight gain or swelling unusually weak or tired yellowing of eyes or skin Side effects that usually do not require medical attention (report to your doctor or health healthcare administration internship if they continue or are bothersome): constipation or diarrhea dizziness gas or heartburn stomach upset What may interact with this medicine? Do not take this medicine with any of the following medications: cidofovir ketorolac methotrexate pemetrexed This medicine may also interact with the following medications: alcohol aspirin diuretics lithium other drugs for inflammation like prednisone warfarin What if I miss a dose? If you miss a dose, take it as soon as you can. If it is almost time for your next dose, take only that dose. Do not take double or extra doses. Where should I keep my medicine? Keep out of the reach of children. Store at room temperature between 15 and 30 degrees C (59 and 86 degrees F). Keep container tightly closed. Throw away any unused medicine after the expiration date. What should I tell my health care provider before I take this medicine? They need to know if you have any of these conditions: asthma cigarette smoker drink more than 3 alcohol containing drinks a day heart disease or circulation problems such as heart failure or leg edema (fluid retention) high blood pressure kidney disease liver disease stomach bleeding or ulcers an unusual or allergic reaction to ibuprofen, aspirin, other NSAIDS, other medicines, foods, dyes, or preservatives or trying to get breast-feeding What should I watch for while using this medicine? Tell your doctor or healthcare professional if your symptoms do not start to get better or if they get worse. This medicine does not prevent heart attack or stroke. In fact, this medicine may increase the chance of a heart attack or stroke. The chance may increase with longer use of this medicine and in people who have heart disease. If you take aspirin to prevent heart attack or stroke, talk with your doctor or health healthcare administration internship. Do not take other medicines that contain aspirin, ibuprofen, or naproxen with this medicine. Side effects such as stomach upset, nausea, or ulcers may be more likely to occur. Many medicines available without a prescription should not be taken with this medicine. This medicine can cause ulcers and bleeding in the stomach and intestines at any time during treatment. Ulcers and bleeding can happen without warning symptoms and can cause . To reduce your risk, do not smoke cigarettes or drink alcohol while you are taking this medicine. You may get drowsy or dizzy. Do not drive, use machinery, or do anything that needs mental alertness until you know how this medicine affects you. Do not stand or sit up quickly, especially if you are an older patient. This reduces the risk of dizzy or fainting spells. This medicine can cause you to bleed more easily. Try to avoid damage to your teeth and gums when you brush or floss your teeth. Taking Your Child's Temperature If your child feels hot, then check the temperature. Under 3 months : Start with a AXILLARY temperature. If it is above 99.0 F (37.2 C), take a RECTAL temperature. 3 months to 4 years : Measure a RECTAL temperature, or an EAR temperature. Over 4 years : Measure an ORAL temperature. Rectal Temperature is the most accurate. Ear temperature is not as accurate as a rectal or oral temperature, but is more convenient and can be used in the 3 month to 4 year old. Other methods such as plastic strips , forehead devices , and pacifier thermometers are even less accurate and they are not recommended. If you do not know how to use a thermometer, ask your nurse or pharmacist. Oral Method: Normal: 98.6 F (37.0 C). Range of normal: Up to 99.0 F (37.2 C). Recommended Age: Use this method for children older than 4 or 5 years of age, only if cooperative. 1) Wait at least 20 minutes after drinking or eating before taking an oral temperature. 2) Place the tip of a the thermometer under the child's tongue. 3) Have child close lips gently, without biting on the thermometer. 4) Keep under the tongue until the thermometer beeps. 5) Remove thermometer and read the temperature in the display. 6) Clean the thermometer with alcohol, or soap and water after each use. Axillary Method (UNDER THE ARM): Normal: 97.6 F (36.6 C) Range of Normal: Up to 98.6 F (37.0 C) Recommended Age: Use this method for children under 4 years of age or any uncooperative child. 1) Make sure armpit is dry and the child does not have clothing between arm and chest. 2) Place the tip of the thermometer high up in the armpit. 4) Hold the child's arm snug against their body with the thermometer in place until it beeps. 5) Remove thermometer and read the temperature in the display. 6) Clean the thermometer with alcohol, or soap and water after each use. Rectal Method: Normal: 99.6 F (37.6 C). Range of Normal: Up to 100.4 F (38.0 C). Recommended age: Use this method for children under 4 years of age or any uncooperative child. 1) Lubricate the tip of a rectal thermometer with a lubricant such as Vaseline jelly or K-Y jelly. 2) Lay your child face down across your lap, or on his/her side with knees bent toward the chest. Spread buttocks so that the anus can be easily seen. 3) Hold the thermometer between your thumb and index finger with the edge of your hand resting on the buttocks. Slowly and gently insert thermometer into the anus about one inch. The tip should slide in easily. Do not force it since they may cause injury. 4) Do not let go of the thermometer! Hold it carefully in place until it beeps. 5) Remove thermometer and read the temperature in the display. 6) Clean the thermometer with alcohol, or soap and water after each use. When To Seek Help Call your doctor or return here if you have an younger than 3 months with a temperature of 100.4 F (38.0 C) or an older child with a fever higher than 104.0 F (40.0 C). You have been given the following additional information: Febrile Illness, Uncertain Cause (Adult) Bronchitis, Antiobiotic Treatment (Adult) Pleurisy Azithromycin Oral tablet Acetaminophen Oral tablet Ibuprofen Oral tablet Thermometer Use (Electronically signed by Domingo Varghese MD 03/11/2017 11:03)
--- NOTE | 2017-03-11 11:04 | ED MED RECONCILIATION SUMMARY ---
Patient: ANTWAN PATE Medication Reconciliation Report [facility] VisitID: [id number] [address] [place] [address] 36y, M Registration Date/Time: 03/08/2017 Weight: 99.7 kg Height/Length: 74 in. BMI: 28.2 ALLERGIES: No Known Drug Allergy The patient's Home Medications are listed below: NONE. The source(s) of the original Home Medication information: Not obtained. The following Medications were given to the patient in the Emergency Department: None. The following Medications were prescribed to the patient: Acetaminophen (available over the counter): take according to label instructions. -- Domingo Varghese MD Motrin (available over the counter): take according to label instructions. -- Domingo Varghese MD Zithromax 250 mg tablets: take 2 orally today, followed by 1 daily for the next 4 days. No refills. Substitution is permissible. -- Domingo Varghese MD
--- NOTE | 2017-03-11 11:04 | ED MED RECONCILIATION SUMMARY ---
Patient: ANTWAN PATE Medication Reconciliation Report [facility] VisitID: [id number] [address] [place] [address] 36y, M Registration Date/Time: 03/08/2017 Weight: 99.7 kg Height/Length: 74 in. BMI: 28.2 ALLERGIES: No Known Drug Allergy The patient's Home Medications are listed below: NONE. The source(s) of the original Home Medication information: Not obtained. The following Medications were given to the patient in the Emergency Department: None. The following Medications were prescribed to the patient: Acetaminophen (available over the counter): take according to label instructions. -- Domingo Varghese MD Motrin (available over the counter): take according to label instructions. -- Domingo Varghese MD Zithromax 250 mg tablets: take 2 orally today, followed by 1 daily for the next 4 days. No refills. Substitution is permissible. -- Domingo Varghese MD
== END 2017-03-09 01:15 | disposition home or self-care (01) ==
LOC: ED SRH 21:56
DX: J20.9 Acute bronchitis, unspecified (principal); R09.1 Pleurisy; I10 Essential (primary) hypertension
CPT/HCPCS: 90100; 91585; 93004; 95059; 95150